=== PATIENT | female | born 1950 | race Caucasian/White ===

== ENCOUNTER → 2021-11-24 10:12 | Outpatient (CLI) | payer OTHER, SELFPAY ==
[2021-11-24 11:09] LABS: Add Manual Diff / Slide Review NO; Basophils Absolute Auto 0 /uL (0-100); Basophils Percent Auto 0.3 % (0-2); Eosinophils Absolute Auto 200 /uL (0-450); Eosinophils Percent Auto 3.1 % (2-4); Hematocrit 37.4 % (36-46); Hemoglobin 12.9 g/dL (12.0-16.0); Lymphocytes Absolute Auto 1700 /uL (1100-4500); Lymphocytes Percent Auto 26.1 % (25-40); Mean Corpuscular HGB Conc 34.4 % (30-36); Mean Corpuscular Hemoglobin 30.5 PG (26-34); Mean Corpuscular Volume 88.7 fL (80-100); Monocytes Absolute Auto 600 /uL (0-900); Monocytes Percent Auto 8.6 % (3-14); Neutrophils Absolute Auto 4000 /uL (1500-7000); Neutrophils Percent Auto 61.9 % (50-75); Platelet Count 282 X10^3/uL (150-400); Red Blood Cell Count 4.22 X10^6/uL (4.0-5.2); Red Cell Distribution Width 13.5 % (11.6-14.8); White Blood Cell Count 6.5 X10^3/uL (4.5-11.0)
[2021-11-24 11:15] LABS: Alanine Aminotransferase 14 IU/L (<35); Albumin Globulin Ratio 1.2 (1.0-2.8); Alkaline Phosphatase 62 U/L (38-126); Aspartate Aminotransferase 23 IU/L (14-36); BUN Creatinine Ratio 21.1 (6-22); Bilirubin Total 0.2 mg/dL (0.2-1.3); Blood Urea Nitrogen 20 mg/dL (7-17); Calcium 8.6 mg/dL (8.4-10.2); Carbon Dioxide 31 mmol/L (22-32); Chloride 102 mmol/L (98-107); Estimated Glomerular Filt Rate > 60 mL/min (>60); Globulin 3.3 g/dL (1.7-4.1); Glucose 89 mg/dL (80-110); HEMOLYSIS < 15 (0-50); Potassium 4.6 mmol/L (3.4-5.1); Sodium 138 mmol/L (137-145); Total Protein 7.3 g/dL (6.3-8.2)
[2021-11-24 14:11] LABS: TSH w/ Reflex to FT4 1.45 uIU/mL (0.47-4.68)
== END ==
PROVIDERS: PCP Pediatrics; Referring Provider Pediatrics; Visit Provider Pediatrics
DX: E03.9 Hypothyroidism, unspecified (principal); I10 Essential (primary) hypertension
CPT/HCPCS: 36415; 80053; 84443; 85025

== ENCOUNTER → 2022-05-12 17:19 | Outpatient (CLI) | payer OTHER, SELFPAY ==
[2022-05-12 18:15] LABS: BUN Creatinine Ratio 20.4 (6-22); Blood Urea Nitrogen 20 mg/dL (7-17); Calcium 9.3 mg/dL (8.4-10.2); Carbon Dioxide 31 mmol/L (22-32); Chloride 100 mmol/L (98-107); Creatinine Urine Random 130.3 mg/dL; Estimated Glomerular Filt Rate > 60 mL/min (>60); Glucose 64 mg/dL (80-110); HEMOLYSIS < 15 (0-50); Potassium 4.2 mmol/L (3.4-5.1); Sodium 139 mmol/L (137-145)
[2022-05-12 18:20] LABS: Microalbumi Creatinin Ratio Ur 6.9 ug/mg CR (<30); Microalbumin Urine Random 0.9 mg/dL (0-1.6)
== END ==
PROVIDERS: PCP Family Medicine; Referring Provider Family Medicine; Visit Provider Family Medicine
DX: I10 Essential (primary) hypertension (principal)
CPT/HCPCS: 36415; 80048; 82043; 82570

== ENCOUNTER → 2022-05-15 13:18 | Outpatient (CLI) | payer OTHER, SELFPAY ==
--- NOTE | 2022-05-15 13:20 | DI.MG.S_ITS ---
BILATERAL DIGITAL SCREENING MAMMOGRAM 3D/2D WITH CAD: 05/15/2022 CLINICAL: Routine screening. Family history of breast cancer. Comparison is made to exams dated: 12/05/2020 mammogram - [facility], 12/05/2019 mammogram, and 11/25/2018 mammogram - [facility]. Both breasts are heterogeneously dense, which may obscure small masses (category c / 51-75% glandular tissue). Current study was also evaluated with a Computer Aided Detection (CAD) system. There is a benign calcification in the left breast. No significant masses, calcifications, or other findings are seen in either breast. There has been no significant interval change. IMPRESSION: BENIGN There is no mammographic evidence of malignancy. A 1 year screening mammogram is recommended. Based on the Tyrer Cuzick model (a risk assessment model) the patient's lifetime risk is 4.8% and her 10 year risk is 3.1%. According to the ACR, ACS, and NCCN guidelines, an annual breast MRI exam along with mammogram is recommended if the patient's lifetime risk is 20% or greater. This exam was interpreted at Station ID: [id number]. NOTE: For mammograms, a report in lay terms will be sent to the patient. Approximately 15% of breast malignancies will not be visualized mammographically. In the management of a palpable breast mass, a negative mammogram must not discourage biopsy of a clinically suspicious lesion. Electronically Signed By: Kristen roy/lashawn:05/17/2022 15:28:24 letter sent: Normal Exam ACR BI-RADS Category 2: Benign Finding(s) 3342F
== END ==
PROVIDERS: PCP Family Medicine; Referring Provider Family Medicine; Visit Provider Family Medicine
DX: Z12.31 Encounter for screening mammogram for malignant neoplasm of breast (principal); Z80.3 Family history of malignant neoplasm of breast
CPT/HCPCS: 77063; 77067

== ENCOUNTER → 2022-05-17 09:31 | Outpatient (CLI) | payer OTHER, SELFPAY ==
[2022-05-18 16:31] LABS: Fecal Immunochemical Test Negative (Negative)
== END ==
PROVIDERS: PCP Family Medicine; Referring Provider Family Medicine; Visit Provider Family Medicine
DX: Z12.11 Encounter for screening for malignant neoplasm of colon (principal)
CPT/HCPCS: 82274

== ENCOUNTER → 2022-07-07 | Outpatient (CLI) | payer OTHER, SELFPAY ==
--- NOTE | 2022-07-07 14:23 | DI.RAD.S_ITS ---
Bone Density Report Name: JACK FLORES Age: 71 Sex: Female Ethnicity: White Date of : 1950 Indication: postmenopausal; screening for osteoporosis; Referring Provider: KEILA BOX Study: Bone densitometry was performed. Exam Date: July 07, 2022 Accession number: [id number] Bone Density: Region BMD T-score Z-score Classification AP Spine(L1-L4) 1.094 0.4 2.6 Normal Femoral Neck (Left) 0.602 -2.2 -0.4 Osteopenia Total Hip (Left) 0.708 -1.9 -0.4 Osteopenia Femoral Neck (Right) 0.562 -2.6 -0.7 Osteoporosis Total Hip (Right) 0.705 -1.9 -0.4 Osteopenia Total Hip Mean 0.707 -1.9 -0.4 Osteopenia World Health Organization criteria for BMD impression classify patients as: Normal (T-score at or above -1.0), Osteopenia (T-score between -1.0 and -2.5), or Osteoporosis (T-score at or below -2.5). 10-year Fracture Risk: FRAX not reported because: Some T-score for Spine Total or Hip Total or Femoral Neck at or below -2.5 Impression: The patient has osteoporosis, based on the Right Femoral Neck T-score. Discussion: INCREASED RISK OF FRACTURE. BONE DENSITY IS UNDESIRABLY LOW AT ONE OR MORE SKELETAL SITES, CONSISTENT WITH POSTMENOPAUSAL OSTEOPOROSIS. This patient's lowest T-score meets the World Health Organization's (WHO) criteria for osteoporosis at one or more sites (T-score -2.5 or below). In untreated patients, the risk of osteoporotic fracture increases approximately two-fold for each 1.0 SD decrease in T-score. Low bone density is not the only risk factor for fracture; also consider factors such as patient's age, frailty or poor health, risk of falling, risk of injury, previous osteoporotic fracture, family history of osteoporosis, cigarette smoking, low body weight, etc. Not everyone with low bone mineral density has osteoporosis; osteomalacia and other metabolic bone disorders should also be considered. Patients who have osteoporosis should be evaluated for specific diseases and conditions (secondary causes) that may cause or contribute to bone loss. The [place] [employer] Endocrinologists (AACE) and National Osteoporosis Foundation (NOF) recommend pharmacologic intervention for all postmenopausal women whose T-score is in this range. The patient should follow a healthful lifestyle (good nutrition with adequate calcium and vitamin D, and appropriate weight-bearing exercise). Follow-Up: Consider a repeat BMD and Vertebral Fracture Assessment (VFA) exam in 2 years or sooner if medically necessary, to reassess this patient's status. Reported by: ANURAG GIVENS M.D. on 07/07/2022 2:40:00 PM.
== END ==
PROVIDERS: PCP Family Medicine; Referring Provider Family Medicine; Visit Provider Family Medicine
DX: Z13.820 Encounter for screening for osteoporosis (principal); Z78.0 Asymptomatic menopausal state; M81.0 Age-related osteoporosis without current pathological fracture
CPT/HCPCS: 77080

== ENCOUNTER 2022-10-06 16:00 | Outpatient (RCR) | payer OTHER, SELFPAY ==
--- NOTE | 2022-09-30 17:07 | PT.OIE ---
Addendum entered and electronically signed by Bianca Azul, PT 09/30/22 17:34: PT direct supervision and direction to PT student. Original Note: Current Diagnoses Pain in right hip (09/30/22) Unsteadiness on feet (09/30/22) Weakness (09/30/22) Past Medical History (Last Updated 11/24/21 @ 10:07 by Adrián Estevez MD) Hypertension Hypothyroidism (acquired) Visit Care Team Role Provider Type Amy Raphael DO Attending Provider Physician Family Provider Primary Care Provider Referring Provider Specialty: Medical Address: [address] [place] [address], [address], [place], [address] Email: [email or web address] Physical Therapy Initial Evaluation PT-OP-A Visit Information Start: 09/30/22 07:23 Freq: Status: Active Protocol: Document 09/30/22 07:24 (Rec: 09/30/22 09:05 [id number]) Out-Patient Physical Therapy Visit Information Visit Information Visit Type Initial Evaluation Visit Note 04/20 Visit Start Time 07:35 Visit Stop Time 08:19 Total Visit Minutes 44 Visit Number 1 Number of SERVICE STATION EQUIPMENT MECHANIC Visits 0 PT-OP-B Current Condition Start: 09/30/22 07:23 Freq: Status: Active Protocol: Document 09/30/22 07:24 (Rec: 09/30/22 09:05 [id number]) Current Condition History of Current Condition History of Current Condition Last check up with doctor did a bone density test and found hips are osteoporosis. told doctor that she was feeling pain in R hip, test showed osteoperosis of R femoral neck . doctor recommended therapy. sensation stays right in inner thigh. not a horrible pain more of discomfort. Noticeable in sitting positions; doestnt last long. not frequent. sticks in mind because it is sudden and is noteable in sitting. when standing goes away and movement helps alleviate. no other things used at this point to allieviate pain, no ice, heat, or tylenol. doesnt bother in other aspects of daily life. sitting too long is the only thing that triggers it. when she is up and acitve she doesnt feel it. some days she turns into couch potato and it can be randomly bothersome. long drives she would notice. visitng friends/work in [place]. several hours notices it. When doctor recommended density test it was a light bulb moment. Discomfort onset 9mo to one year ago. wouldnt happen very often. does a pilates class and walks a lot with volunteer work. 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 hard to get back up from squatting positions. does core exercises at a functional fitness class . isometrics and pilates based movements. balance not what it used to be. moves more carefully. had a bout of vertigo went to physical therapist, 2-3 years ago. started moving more carefully after that. More sensitive to balance and making usre she is on level ground. Treatment Goals Patient/Caregiver Goals hoping to do exercises to keep femoral neck area strong. increase strength for ADLs. increase balance/stability. PT-OP-C Subjective Start: 09/30/22 07:23 Freq: Status: Active Protocol: Document 09/30/22 07:24 (Rec: 09/30/22 09:05 [id number]) Patient Questionnaires Lower Extremity Functional Scale LEFS Impairment 0% Impaired (Score 80) OP-PT Pain Assessment Location R hip Intensity 4 Scale Used Numeric (0 - 10) Description Spasm Description- Other kink Frequency Occasional Pain Duration quick onset Radiating Location R inner thigh, femoral neck Pain Aggravating Factors Sitting Pain Alleviating Factors Position,Standing,Exercise Other Pain Alleviating Factors general movement in standing PT-OP-D Balance Start: 09/30/22 07:23 Freq: Status: Active Protocol: Document 09/30/22 07:24 (Rec: 09/30/22 09:05 [id number]) Balance Tests Single Limb Standing Single Limb- Right 60 sec, used L to support R. lat sheer of pelvis Single Limb- Left 38 sec. trunk lean to R. used R to support L. PT-OP-F Manual Assessment Start: 09/30/22 07:23 Freq: Status: Active Protocol: Document 09/30/22 07:24 (Rec: 09/30/22 09:05 [id number]) Manual Assessments Soft Tissue Assessment Soft Tissue Mobility Assessment R hip flexion palpation in supine. tight hipflexor at superior attachment. Joint Mobility Assessment Joint Mobility Assessment R hip flexion supine. springy end feel PT-OP-G Mobility & Gait Start: 09/30/22 07:23 Freq: Status: Active Protocol: Document 09/30/22 07:24 (Rec: 09/30/22 09:05 [id number]) OP Gait Assessment Comments Gait Comments L knee slight valgum. R pelvis rotates more than other. slight forward trunk lean. PT-OP-J Posture/Palpation/Skin Start: 09/30/22 07:23 Freq: Status: Active Protocol: Document 09/30/22 07:24 (Rec: 09/30/22 09:05 [id number]) Posture Evaluation [facility] Postural Classification System Lumbar Protective Mechanism Left AP 1 Lumbar Protective Mechanism Right AP 0 Lumbar Protective Mechanism Left PA 1 Lumbar Protective Mechanism Right PA 0 PT-OP-K Range of Motion Start: 09/30/22 07:23 Freq: Status: Active Protocol: Document 09/30/22 07:24 (Rec: 09/30/22 09:05 [id number]) Hip Goniometric Range of Motion Hip Left Active Flexion w/Knee Flexed 100 Straight Leg Raise 84 Internal Rotation 35 External Rotation 40 Comments Passive hip flex w/ bent knee 111 Right Active Flexion w/Knee Flexed 101 Straight Leg Raise 80 Internal Rotation 41 External Rotation 28 Comments Passive hip flex w/ bent knee 115 PT-OP-M Strength Start: 09/30/22 07:23 Freq: Status: Active Protocol: Document 09/30/22 07:24 (Rec: 09/30/22 09:05 [id number]) Hip Strength Hip Manual Muscle Testing Right Flexion (L2) 3+ Fair+ Extension (S1) 3+ Fair+ Abduction 3 Fair Adduction 3 Fair External Rotation 3+ Fair+ Internal Rotation 3+ Fair+ Left Flexion (L2) 4 Good Extension (S1) 3+ Fair+ Abduction 3 Fair Adduction 3 Fair External Rotation 3+ Fair+ Internal Rotation 3+ Fair+ Knee Strength Knee Manual Muscle Testing Right Flexion (S2) 3+ Fair+ Extension (L3) 3+ Fair+ Left Flexion (S2) 4 Good Extension (L3) 3+ Fair+ Ankle/Foot Strength Ankle and Foot Manual Muscle Testing Right Dorsiflexion (L4) 5 Normal Left Dorsiflexion (L4) 5 Normal PT-OP-T Assessment and Plan Start: 06/22/23 07:23 Freq: Status: Active Protocol: Document 09/30/22 07:24 (Rec: 09/30/22 09:05 [id number]) Physical Therapy Assessment Rehab Potential Rehabilitation Potential Excellent Evaluation Complexity Number of Personal Factors/Comorbidities 1-2 Number of Body Systems Impaired 4 or More Clinical Presentation at Evaluation Evolving Impairments Impairments Activity Tolerance,Balance, Functional Mobility,Soft Tissue Mobility,Strength Other Impairments sitting Goals Balance Short Term Goal (STG) increase SLS time to 30 sec bilaterally without using opposite leg for support STG Duration 10/25 Skilled Nursing Goal (LTG) feel stable walking/squatting as she transferes from surfaces with dec feelings of imbalance LTG Duration 11/25 strength Short Term Goal (STG) adhere to HEP plan to increase strength of hips from 3+ to 4 STG Duration 10/25 Auto Seat Cover Installer Goal (LTG) Be able to sit for over 1 hour without sensation of pain. LTG Duration 11/25 Assessment Summary Assessment Pt presents with osteoperosis of R femoral neck and osteopenia of other LE regions . Normal in spine (L1-L4). See results in scanned documents for values. Prolonged sitting intiates a feeling of discomfort to R inner thigh. Sensation comes on quickly in prolonged sitting positions and goes away quickly when she stands and starts to move. started about 9mo to 1 year ago. She demonstrates some weakness w/ MMT. She would beneft from skilled physical therapy to improve strength in her LEs, balance, and improve strength for her ADLs. Physical Therapy Plan Frequency and Duration Frequency of Treatment 1x/Week Duration of treatment (weeks) 8 Plan of Care Start Date 09/30/22 Plan of Care End Date 11/25/22 Therapeutic Interventions Therapeutic Interventions Balance Training,Gait Training ,Home Exercise Program,Joint Mobilizations,Manual Therapy, Neuromuscular Re-education, Patient/Caregiver Education, Self-Care/Home Management,Soft Tissue Mobilization,Taping, Therapeutic Activities, Therapeutic Exercises Modalities Cold Pack/Ice Massage,Electric Stimulation,Hot Packs, Ultrasound Next Visit Focus/Plan Next Note Type Treatment Note Next Visit Plan give pt HEP; LE strengthening and core stablization exercises. shuttle to increase load. Banded side steps/4-way hip to increase muscualr strength of LE. Soft tissue manual to hip flexors. Be gentle with manual; pt has osteoperosis
--- NOTE | 2022-09-30 17:07 | PT.OPPOC ---
Addendum entered and electronically signed by Bianca Azul, PT 09/30/22 17:34: PT direct supervision and direction to PT student. Original Note: Physical, Occupational & Speech Therapy At [facility] Current Diagnoses Pain in right hip (09/30/22) Unsteadiness on feet (09/30/22) Weakness (09/30/22) Visit Care Team Role Provider Type Amy Raphael DO Attending Provider Physician Family Provider Primary Care Provider Referring Provider Specialty: Medical Address: [address] [place] [address], [address], [place], [address] Email: [email or web address] Plan Of Care PT-OP-T Assessment and Plan Start: 09/30/22 07:23 Freq: Status: Active Protocol: Document 09/30/22 07:24 (Rec: 09/30/22 09:05 [id number]) Physical Therapy Assessment Rehab Potential Rehabilitation Potential Excellent Evaluation Complexity Number of Personal Factors/Comorbidities 1-2 Number of Body Systems Impaired 4 or More Clinical Presentation at Evaluation Evolving Impairments Impairments Activity Tolerance,Balance, Functional Mobility,Soft Tissue Mobility,Strength Other Impairments sitting Goals Balance Short Term Goal (STG) increase SLS time to 30 sec bilaterally without using opposite leg for support STG Duration 10/25 Longterm Goal (LTG) feel stable walking/squatting as she transferes from surfaces with dec feelings of imbalance LTG Duration 11/25 strength Short Term Goal (STG) adhere to HEP plan to increase strength of hips from 3+ to 4 STG Duration 10/25 Longterm Goal (LTG) Be able to sit for over 1 hour without sensation of pain. LTG Duration 11/25 Assessment Summary Assessment Pt presents with osteoperosis of R femoral neck and osteopenia of other LE regions . Normal in spine (L1-L4). See results in scanned documents for values. Prolonged sitting intiates a feeling of discomfort to R inner thigh. Sensation comes on quickly in prolonged sitting positions and goes away quickly when she stands and starts to move. started about 9mo to 1 year ago. She demonstrates some weakness w/ MMT. She would beneft from skilled physical therapy to improve strength in her LEs, balance, and improve strength for her ADLs. Physical Therapy Plan Frequency and Duration Frequency of Treatment 1x/Week Duration of treatment (weeks) 8 Plan of Care Start Date 09/30/22 Plan of Care End Date 11/25/22 Therapeutic Interventions Therapeutic Interventions Balance Training,Gait Training ,Home Exercise Program,Joint Mobilizations,Manual Therapy, Neuromuscular Re-education, Patient/Caregiver Education, Self-Care/Home Management,Soft Tissue Mobilization,Taping, Therapeutic Activities, Therapeutic Exercises Modalities Cold Pack/Ice Massage,Electric Stimulation,Hot Packs, Ultrasound Next Visit Focus/Plan Next Note Type Treatment Note Next Visit Plan give pt HEP; LE strengthening and core stablization exercises. shuttle to increase load. Banded side steps/4-way hip to increase muscualr strength of LE. Soft tissue manual to hip flexors. Be gentle with manual; pt has osteoperosis Plan of Care Dates Plan of Care Start Date 09/30/22 Plan of Care End Date 11/25/22 Electronically Signed by: Lou Jade 09/30/22 [id number] If you are in agreement with this Plan of Care, please return a signed and dated copy. I have reviewed this Plan of Care and certify that the skilled therapy services above are required to meet the patient?s needs. Physician Signature Date Printed Name and Credentials Clinical Instructor Signature Printed Name and Credentials
--- NOTE | 2022-10-06 16:50 | PT.OTN ---
Current Diagnoses Pain in right hip (10/06/22) Unsteadiness on feet (10/06/22) Weakness (10/06/22) Physical Therapy Treatment Note PT-OP-A Visit Information Start: 09/30/22 07:23 Freq: Status: Active Protocol: Document 10/06/22 16:05 [facility] (Rec: 10/06/22 16:50 [facility] [id number]) Out-Patient Physical Therapy Visit Information Visit Information Visit Type Treatment Note Visit Note 05/21 Visit Start Time 16:04 Visit Stop Time 16:45 Total Visit Minutes 41 Visit Number 2 Number of LOCKSTITCHER Visits 0 PT-OP-B Current Condition Start: 09/30/22 07:23 Freq: Status: Active Protocol: Document 09/30/22 07:24 JH (Rec: 09/30/22 09:05 [id number]) Current Condition History of Current Condition History of Current Condition Last check up with doctor did a bone density test and found hips are osteoporosis. told doctor that she was feeling pain in R hip, test showed osteoperosis of R femoral neck . doctor recommended therapy. sensation stays right in inner thigh. not a horrible pain more of discomfort. Noticeable in sitting positions; doestnt last long. not frequent. sticks in mind because it is sudden and is noteable in sitting. when standing goes away and movement helps alleviate. no other things used at this point to allieviate pain, no ice, heat, or tylenol. doesnt bother in other aspects of daily life. sitting too long is the only thing that triggers it. when she is up and acitve she doesnt feel it. some days she turns into couch potato and it can be randomly bothersome. long drives she would notice. visitng friends/work in [place]. several hours notices it. When doctor recommended density test it was a light bulb moment. Discomfort onset 9mo to one year ago. wouldnt happen very often. 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 hard to get back up from squatting positions. does core exercises at a functional fitness class . isometrics and pilates based movements. balance not what it used to be. moves more carefully. had a bout of vertigo went to physical therapist, 2-3 years ago. started moving more carefully after that. More sensitive to balance and making usre she is on level ground. Treatment Goals Patient/Caregiver Goals hoping to do exercises to keep femoral neck area strong. increase strength for ADLs. increase balance/stability. PT-OP-C Subjective Start: 09/30/22 07:23 Freq: Status: Active Protocol: Document 10/06/22 16:05 [facility] (Rec: 10/06/22 16:50 [facility] [id number]) OP-PT Subjective Patient Comments Patient Comments no specific concerns PT-OP-D Balance Start: 09/30/22 07:23 Freq: Status: Active Protocol: Document 09/30/22 07:24 (Rec: 09/30/22 09:05 [id number]) Balance Tests Single Limb Standing Single Limb- Right 60 sec, used L to support R. lat sheer of pelvis Single Limb- Left 38 sec. trunk lean to R. used R to support L. PT-OP-F Manual Assessment Start: 09/30/22 07:23 Freq: Status: Active Protocol: Document 09/30/22 07:24 (Rec: 09/30/22 09:05 [id number]) Manual Assessments Soft Tissue Assessment Soft Tissue Mobility Assessment R hip flexion palpation in supine. tight hipflexor at superior attachment. Joint Mobility Assessment Joint Mobility Assessment R hip flexion supine. springy end feel PT-OP-G Mobility & Gait Start: 09/30/22 07:23 Freq: Status: Active Protocol: Document 09/30/22 07:24 (Rec: 09/30/22 09:05 [id number]) OP Gait Assessment Comments Gait Comments L knee slight valgum. R pelvis rotates more than other. slight forward trunk lean. PT-OP-J Posture/Palpation/Skin Start: 09/30/22 07:23 Freq: Status: Active Protocol: Document 09/30/22 07:24 (Rec: 09/30/22 09:05 [id number]) Posture Evaluation [facility] Postural Classification System Lumbar Protective Mechanism Left AP 1 Lumbar Protective Mechanism Right AP 0 Lumbar Protective Mechanism Left PA 1 Lumbar Protective Mechanism Right PA 0 PT-OP-K Range of Motion Start: 09/30/22 07:23 Freq: Status: Active Protocol: Document 09/30/22 07:24 (Rec: 09/30/22 09:05 [id number]) Hip Goniometric Range of Motion Hip Left Active Flexion w/Knee Flexed 100 Straight Leg Raise 84 Internal Rotation 35 External Rotation 40 Comments Passive hip flex w/ bent knee 111 Right Active Flexion w/Knee Flexed 101 Straight Leg Raise 80 Internal Rotation 41 External Rotation 28 Comments Passive hip flex w/ bent knee 115 PT-OP-M Strength Start: 09/30/22 07:23 Freq: Status: Active Protocol: Document 09/30/22 07:24 (Rec: 09/30/22 09:05 [id number]) Hip Strength Hip Manual Muscle Testing Right Flexion (L2) 3+ Fair+ Extension (S1) 3+ Fair+ Abduction 3 Fair Adduction 3 Fair External Rotation 3+ Fair+ Internal Rotation 3+ Fair+ Left Flexion (L2) 4 Good Extension (S1) 3+ Fair+ Abduction 3 Fair Adduction 3 Fair External Rotation 3+ Fair+ Internal Rotation 3+ Fair+ Knee Strength Knee Manual Muscle Testing Right Flexion (S2) 3+ Fair+ Extension (L3) 3+ Fair+ Left Flexion (S2) 4 Good Extension (L3) 3+ Fair+ Ankle/Foot Strength Ankle and Foot Manual Muscle Testing Right Dorsiflexion (L4) 5 Normal Left Dorsiflexion (L4) 5 Normal PT-OP-Q Treatments Start: 09/30/22 07:23 Freq: Status: Active Protocol: Document 10/06/22 16:05 [facility] (Rec: 10/06/22 16:50 [facility] [id number]) Gym Equipment Shuttle Balance red clips Comments fwd: WBOS (EC, head turn trials, fwd/back wt shifts), NBOS( EC & head turn B), stagered stance B side: WBOS & NBOS Therapeutic Exercises Supine Exercises core Supine Exercise Name DL isometric Side bilateral Reps/Minutes 30 sec Standing Exercises sidestep Side bilateral Equipment Used orange band Reps/Minutes 2x20ft lunge Side bilateral Reps/Minutes 5 Comments rail prn squat Side bilateral Equipment Used 2nd set w/orange band Reps/Minutes 2x10 Manual Therapy Treatment Soft Tissue Mobilization hip flexor Body Location R iliacus distal & proximal & psoas distal Mobilization Type Sustained Pressure Intensity/Depth Moderate Comments w/APs & hip rot PT-OP-T Assessment and Plan Start: 09/30/22 07:23 Freq: Status: Active Protocol: Document 10/06/22 16:05 [facility] (Rec: 10/06/22 16:50 [facility] [id number]) Physical Therapy Assessment Goals Balance Short Term Goal (STG) increase SLS time to 30 sec bilaterally without using opposite leg for support STG Duration 10/25 Detention Goal (LTG) feel stable walking/squatting as she transferes from surfaces with dec feelings of imbalance LTG Duration 11/25 strength Short Term Goal (STG) adhere to HEP plan to increase strength of hips from 3+ to 4 STG Duration 10/25 Detention Goal (LTG) Be able to sit for over 1 hour without sensation of pain. LTG Duration 11/25 Assessment Summary Assessment Pt did well with exercsies but tended to require ceus for knee alignment w/squats and some postural cues w/banded exercsies. Manual to hip flexor showed tightnes throughout which may contribute to hip discomfort. Physical Therapy Plan Frequency and Duration Frequency of Treatment 1x/Week Duration of treatment (weeks) 8 Plan of Care Start Date 09/30/22 Plan of Care End Date 11/25/22 Next Visit Focus/Plan Next Note Type Treatment Note Next Visit Plan review HEP; shuttle to inc load, LE strength & core stabilization,4 way hip, manual to hip flexor Be gentle with manual; pt has osteoperosis [ End ]
--- NOTE | 2022-10-14 17:12 | PT-OP ANOTE ---
Pt called re: no show and message was left re: policy and next scheduled appt.
--- NOTE | 2022-10-20 07:51 | PT.OPDS ---
Current Diagnoses Pain in right hip (10/06/22) Unsteadiness on feet (10/06/22) Weakness (10/06/22) Visit Care Team Role Provider Type Amy Raphael DO Attending Provider Physician Family Provider Primary Care Provider Referring Provider Specialty: Medical Address: [address] [place] [address], [address], [place], [address] Email: [email or web address] Visit Number Visit Number 2 Discharge Summary PT-OP-B Current Condition Start: 09/30/22 07:23 Freq: Status: Active Protocol: Document 09/30/22 07:24 (Rec: 09/30/22 09:05 [id number]) Current Condition History of Current Condition History of Current Condition Last check up with doctor did a bone density test and found hips are osteoporosis. told doctor that she was feeling pain in R hip, test showed osteoperosis of R femoral neck . doctor recommended therapy. sensation stays right in inner thigh. not a horrible pain more of discomfort. Noticeable in sitting positions; doestnt last long. not frequent. sticks in mind because it is sudden and is noteable in sitting. when standing goes away and movement helps alleviate. no other things used at this point to allieviate pain, no ice, heat, or tylenol. doesnt bother in other aspects of daily life. sitting too long is the only thing that triggers it. when she is up and acitve she doesnt feel it. some days she turns into couch potato and it can be randomly bothersome. long drives she would notice. visitng friends/work in [place]. several hours notices it. When doctor recommended density test it was a light bulb moment. Discomfort onset 9mo to one year ago. wouldnt happen very often. does a pilates class and walks a lot with volunteer work. 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 hard to get back up from squatting positions. does core exercises at a functional fitness class . isometrics and pilates based movements. balance not what it used to be. moves more carefully. had a bout of vertigo went to physical therapist, 2-3 years ago. started moving more carefully after that. More sensitive to balance and making usre she is on level ground. Treatment Goals Patient/Caregiver Goals hoping to do exercises to keep femoral neck area strong. increase strength for ADLs. increase balance/stability. PT-OP-C Subjective Start: 09/30/22 07:23 Freq: Status: Active Protocol: Document 10/06/22 16:05 [facility] (Rec: 10/06/22 16:50 [facility] [id number]) OP-PT Subjective Patient Comments Patient Comments no specific concerns PT-OP-D Balance Start: 09/30/22 07:23 Freq: Status: Active Protocol: Document 09/30/22 07:24 (Rec: 09/30/22 09:05 [id number]) Balance Tests Single Limb Standing Single Limb- Right 60 sec, used L to support R. lat sheer of pelvis Single Limb- Left 38 sec. trunk lean to R. used R to support L. PT-OP-F Manual Assessment Start: 09/30/22 07:23 Freq: Status: Active Protocol: Document 09/30/22 07:24 (Rec: 09/30/22 09:05 [id number]) Manual Assessments Soft Tissue Assessment Soft Tissue Mobility Assessment R hip flexion palpation in supine. tight hipflexor at superior attachment. Joint Mobility Assessment Joint Mobility Assessment R hip flexion supine. springy end feel PT-OP-G Mobility & Gait Start: 09/30/22 07:23 Freq: Status: Active Protocol: Document 09/30/22 07:24 (Rec: 09/30/22 09:05 [id number]) OP Gait Assessment Comments Gait Comments L knee slight valgum. R pelvis rotates more than other. slight forward trunk lean. PT-OP-J Posture/Palpation/Skin Start: 09/30/22 07:23 Freq: Status: Active Protocol: Document 09/30/22 07:24 (Rec: 09/30/22 09:05 [id number]) Posture Evaluation Freddy Postural Classification System Lumbar Protective Mechanism Left AP 1 Lumbar Protective Mechanism Right AP 0 Lumbar Protective Mechanism Left PA 1 Lumbar Protective Mechanism Right PA 0 PT-OP-K Range of Motion Start: 09/30/22 07:23 Freq: Status: Active Protocol: Document 09/30/22 07:24 (Rec: 09/30/22 09:05 [id number]) Hip Goniometric Range of Motion Hip Left Active Flexion w/Knee Flexed 100 Straight Leg Raise 84 Internal Rotation 35 External Rotation 40 Comments Passive hip flex w/ bent knee 111 Right Active Flexion w/Knee Flexed 101 Straight Leg Raise 80 Internal Rotation 41 External Rotation 28 Comments Passive hip flex w/ bent knee 115 PT-OP-M Strength Start: 09/30/22 07:23 Freq: Status: Active Protocol: Document 09/30/22 07:24 (Rec: 09/30/22 09:05 [id number]) Hip Strength Hip Manual Muscle Testing Right Flexion (L2) 3+ Fair+ Extension (S1) 3+ Fair+ Abduction 3 Fair Adduction 3 Fair External Rotation 3+ Fair+ Internal Rotation 3+ Fair+ Left Flexion (L2) 4 Good Extension (S1) 3+ Fair+ Abduction 3 Fair Adduction 3 Fair External Rotation 3+ Fair+ Internal Rotation 3+ Fair+ Knee Strength Knee Manual Muscle Testing Right Flexion (S2) 3+ Fair+ Extension (L3) 3+ Fair+ Left Flexion (S2) 4 Good Extension (L3) 3+ Fair+ Ankle/Foot Strength Ankle and Foot Manual Muscle Testing Right Dorsiflexion (L4) 5 Normal Left Dorsiflexion (L4) 5 Normal PT-OP-T Assessment and Plan Start: 09/30/22 07:23 Freq: Status: Active Protocol: Document 10/20/22 07:50 [facility] (Rec: 10/20/22 07:51 [facility] [id number]) Physical Therapy Assessment Goals Balance Short Term Goal (STG) increase SLS time to 30 sec bilaterally without using opposite leg for support STG 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 LTG Duration 11/25 Assessment Summary Assessment Pt called and requested DC as she will be going out of town for extended time. DC d/t pt request. Pt was given HEP but was only seen for IE and 1 treatment session before call to ask for DC. Physical Therapy Plan Discharge Physical Therapy Discharge Reasons Patient Request
== END 2022-10-21 15:13 ==
LOC: PHYS 16:00
PROVIDERS: Family Provider Family Medicine; PCP Family Medicine; Referring Provider Family Medicine; Visit Provider Family Medicine
DX: M25.551 Pain in right hip (principal); R53.1 Weakness; R26.81 Unsteadiness on feet
CPT/HCPCS: 97110; 97112; 97140; 97162

== ENCOUNTER → 2022-11-04 07:52 | Outpatient (CLI) | payer OTHER, SELFPAY ==
[2022-11-04 08:40] LABS: Cholesterol 189 mg/dL (140-199); HDL Cholesterol 64 mg/dL (40-60); LDL Cholesterol Calculated 100 mg/dL (<100); Triglycerides 124 mg/dL (35-150)
== END ==
PROVIDERS: Family Provider Family Medicine; PCP Family Medicine; Referring Provider Family Medicine; Visit Provider Family Medicine
DX: E03.9 Hypothyroidism, unspecified (principal); I10 Essential (primary) hypertension
CPT/HCPCS: 36415; 80061

== ENCOUNTER → 2023-06-23 07:43 | Outpatient (CLI) | payer OTHER, SELFPAY ==
--- NOTE | 2023-06-23 07:44 | DI.MG.S_ITS ---
BILATERAL DIGITAL SCREENING MAMMOGRAM 3D/2D WITH CAD: 06/23/2023 CLINICAL: Routine screening. Comparison is made to exams dated: 05/15/2022 mammogram - [facility], 12/05/2020 mammogram - [facility], and 12/05/2019 mammogram - [facility]. Both breasts are heterogeneously dense, which may obscure small masses (category c / 51-75% glandular tissue). Current study was also evaluated with a Computer Aided Detection (CAD) system. No significant masses, calcifications, or other findings are seen in either breast. There has been no significant interval change. IMPRESSION: NEGATIVE There is no mammographic evidence of malignancy. A 1 year screening mammogram is recommended. Based on the Tyrer Cuzick model (a risk assessment model) the patient's lifetime risk is 4.6% and her 10 year risk is 3.1%. According to the ACR, ACS, and NCCN guidelines, an annual breast MRI exam along with mammogram is recommended if the patient's lifetime risk is 20% or greater. This exam was interpreted at Station ID: [id number]. NOTE: For mammograms, a report in lay terms will be sent to the patient. Approximately 15% of breast malignancies will not be visualized mammographically. In the management of a palpable breast mass, a negative mammogram must not discourage biopsy of a clinically suspicious lesion. Electronically Signed By: Sandrine Beth M.D., PH.D aaron/lashawn:06/23/2023 12:13:14 letter sent: Normal Exam ACR BI-RADS Category 1: Negative [id number]
[2023-06-23 08:23] LABS: BUN Creatinine Ratio 19.4 (6-22); Blood Urea Nitrogen 19 mg/dL (7-17); Carbon Dioxide 32 mmol/L (22-32); Chloride 104 mmol/L (98-107); Estimated Glomerular Filt Rate > 60 mL/min (>60); Glucose 95 mg/dL (80-110); HEMOLYSIS < 15 (0-50); Potassium 4.1 mmol/L (3.4-5.1); Sodium 138 mmol/L (137-145)
[2023-06-23 08:51] LABS: TSH w/ Reflex to FT4 2.02 uIU/mL (0.47-4.68)
[2023-06-23 08:54] LABS: Creatinine Urine Random 93.1 mg/dL
[2023-06-23 08:57] LABS: Microalbumi Creatinin Ratio Ur 7.5 ug/mg CR (<30); Microalbumin Urine Random 0.7 mg/dL (0-1.6)
== END ==
LOC: MAMMO 07:44
PROVIDERS: Family Provider Family Medicine; PCP Family Medicine; Referring Provider Family Medicine; Visit Provider Family Medicine
DX: Z12.31 Encounter for screening mammogram for malignant neoplasm of breast (principal); I10 Essential (primary) hypertension; R92.333 Mammographic heterogeneous density, bilateral breasts; E03.9 Hypothyroidism, unspecified
CPT/HCPCS: 36415; 77063; 77067; 80048; 82043; 82570; 84443

== ENCOUNTER → 2023-07-04 09:41 | Outpatient (CLI) | payer OTHER, SELFPAY ==
[2023-07-05 13:11] LABS: Fecal Immunochemical Test Negative (Negative)
== END ==
PROVIDERS: Family Provider Family Medicine; PCP Family Medicine; Referring Provider Family Medicine; Visit Provider Family Medicine
DX: Z12.11 Encounter for screening for malignant neoplasm of colon (principal)
CPT/HCPCS: 82274

== ENCOUNTER → 2023-12-29 08:08 | Outpatient (CLI) | payer OTHER, SELFPAY ==
[2023-12-29 09:58] LABS: Add Manual Diff / Slide Review NO; Basophils Absolute Auto 0 /uL (0-100); Basophils Percent Auto 0.2 % (0-2); Eosinophils Absolute Auto 300 /uL (0-450); Hematocrit 40.9 % (36-46); Hemoglobin 13.7 g/dL (12.0-16.0); Lymphocytes Absolute Auto 1500 /uL (1100-4500); Lymphocytes Percent Auto 20.8 % (25-40); Mean Corpuscular HGB Conc 33.6 % (30-36); Mean Corpuscular Hemoglobin 30.7 PG (26-34); Mean Corpuscular Volume 91.3 fL (80-100); Monocytes Absolute Auto 800 /uL (0-900); Monocytes Percent Auto 10.4 % (3-14); Neutrophils Absolute Auto 4600 /uL (1500-7000); Neutrophils Percent Auto 64.6 % (50-75); Platelet Count 326 X10^3/uL (150-400); Red Blood Cell Count 4.48 X10^6/uL (4.0-5.2); Red Cell Distribution Width 13.5 % (11.6-14.8); White Blood Cell Count 7.2 X10^3/uL (4.5-11.0)
[2023-12-29 10:11] LABS: Alanine Aminotransferase 12 IU/L (<35); Albumin Globulin Ratio 1.3 (1.0-2.8); Alkaline Phosphatase 76 U/L (38-126); Aspartate Aminotransferase 22 IU/L (14-36); BUN Creatinine Ratio 18.6 (6-22); Bilirubin Total 0.5 mg/dL (0.2-1.3); Blood Urea Nitrogen 19 mg/dL (7-17); Calcium 9.4 mg/dL (8.4-10.2); Carbon Dioxide 30 mmol/L (22-32); Chloride 97 mmol/L (98-107); Cholesterol 199 mg/dL (140-199); Estimated Glomerular Filt Rate 58 mL/min (>60); Globulin 3.2 g/dL (1.7-4.1); Glucose 88 mg/dL (80-110); HDL Cholesterol 70 mg/dL (40-60); HEMOLYSIS < 15 (0-50); LDL Cholesterol Calculated 110 mg/dL (<100); Potassium 4.6 mmol/L (3.4-5.1); Sodium 133 mmol/L (137-145); Total Protein 7.2 g/dL (6.3-8.2); Triglycerides 96 mg/dL (35-150)
== END ==
PROVIDERS: Family Provider Family Medicine; PCP Family Medicine; Referring Provider Family Medicine; Visit Provider Family Medicine
DX: I10 Essential (primary) hypertension (principal)
CPT/HCPCS: 80053; 80061; 85025

== ENCOUNTER → 2024-06-06 07:41 | Outpatient (CLI) | payer MEDICARE, SELFPAY ==
[2024-06-06 08:42] LABS: Add Manual Diff / Slide Review NO; Basophils Absolute Auto 0 /uL (0-100); Basophils Percent Auto 0.3 % (0-2); Eosinophils Absolute Auto 300 /uL (0-450); Eosinophils Percent Auto 4.4 % (2-4); Hematocrit 40.9 % (36-46); Hemoglobin 13.6 g/dL (12.0-16.0); Lymphocytes Absolute Auto 1400 /uL (1100-4500); Lymphocytes Percent Auto 21.3 % (25-40); Mean Corpuscular HGB Conc 33.2 % (30-36); Mean Corpuscular Hemoglobin 30.3 PG (26-34); Mean Corpuscular Volume 91.3 fL (80-100); Monocytes Absolute Auto 600 /uL (0-900); Monocytes Percent Auto 9.5 % (3-14); Neutrophils Absolute Auto 4200 /uL (1500-7000); Neutrophils Percent Auto 64.5 % (50-75); Platelet Count 320 X10^3/uL (150-400); Red Blood Cell Count 4.48 X10^6/uL (4.0-5.2); Red Cell Distribution Width 13.9 % (11.6-14.8); White Blood Cell Count 6.5 X10^3/uL (4.5-11.0)
[2024-06-06 09:00] LABS: Alanine Aminotransferase 14 IU/L (<35); Albumin 4.2 g/dL (3.5-5.0); Albumin Globulin Ratio 1.5 (1.0-2.8); Alkaline Phosphatase 72 U/L (38-126); Aspartate Aminotransferase 23 IU/L (14-36); BUN Creatinine Ratio 17.2 (6-22); Bilirubin Total 0.4 mg/dL (0.2-1.3); Blood Urea Nitrogen 16 mg/dL (7-17); Calcium 9.2 mg/dL (8.4-10.2); Carbon Dioxide 28 mmol/L (22-32); Chloride 100 mmol/L (98-107); Cholesterol 204 mg/dL (140-199); Estimated Glomerular Filt Rate > 60 mL/min (>60); Globulin 2.8 g/dL (1.7-4.1); Glucose 92 mg/dL (80-110); HDL Cholesterol 69 mg/dL (40-60); HEMOLYSIS < 15 (0-50); LDL Cholesterol Calculated 117 mg/dL (<100); Potassium 4.5 mmol/L (3.4-5.1); Sodium 136 mmol/L (137-145); Triglycerides 89 mg/dL (35-150)
[2024-06-06 09:27] LABS: TSH w/ Reflex to FT4 2.04 uIU/mL (0.47-4.68)
== END ==
PROVIDERS: Family Provider Family Medicine; PCP Family Medicine; Referring Provider Family Medicine; Visit Provider Family Medicine
DX: E03.9 Hypothyroidism, unspecified (principal); I10 Essential (primary) hypertension; E78.5 Hyperlipidemia, unspecified
CPT/HCPCS: 36415; 80053; 80061; 84443; 85025